=== PATIENT | female | born 1980 | race Caucasian/White ===

== ENCOUNTER 2018-10-11 12:30 | Emergency (ER) | payer OTHER ==
[~2018-10-11] VITALS: Ht 154.9 cm; Wt 61.2 kg
[~2018-10-11 12:30] MED LIST: ERYTHROMYCIN500 M1; MUCINEX1200 MG/BO PO; OSEL75CA PO; PROBIOTIC1 EACH PO; PROTONIX40 MG PO; ZANTAC150 MG PO; ZYRTEC10 M3
== END 2018-10-11 13:59 | disposition home or self-care (01) ==
LOC: ER 12:30
DX: H92.01 Otalgia, right ear (principal)

== ENCOUNTER 2022-01-18 12:03 | Emergency (ER) | payer OTHER ==
[~2022-01-18] VITALS: Ht 167.6 cm; Wt 70.3 kg
== END 2022-01-18 16:04 | disposition home or self-care (01) ==
LOC: ER 12:03
DX: R07.0 Pain in throat (principal); Z20.822 Contact with and (suspected) exposure to COVID-19; Z88.0 Allergy status to penicillin; Z88.1 Allergy status to other antibiotic agents